=== PATIENT | female | born 1960 | race Caucasian/White ===

== ENCOUNTER 2016-08-19 16:35 | Emergency (ER) | payer OTHER ==
--- NOTE | 2016-08-19 18:06 | DIAGNOSTIC IMAGING REPORT ---
PROCEDURE: US VENOUS - LEFT EXT INDICATION: Left calf pain and swelling. Initial encounter. TECHNIQUE: Duplex sonography of the deep venous system in the left lower extremity was performed. Compression and augmentation techniques were used. COMPARISON: None. FINDINGS: Normal compression of the greater saphenous, common femoral, superficial femoral, popliteal, peroneal, and posterior tibial veins. Normal augmentation. There is no evidence of superficial or deep venous thrombosis. IMPRESSION: 1. Negative venous ultrasound of the left lower extremity.
--- NOTE | 2016-08-20 02:36 | ED NURSING NOTES ---
Clinical Report - Nurses [facility] [address] [place] [address] 08/19/2016 16:35 [id number] TRI[facility] Triage time 16:58. Acuity: LEVEL 4. Chief Complaint: LEFT LOWER EXTREMITY PAIN. 17:07 08/19/16. Alert. No acute distress. SEPSIS SCREEN: Sepsis Screen. Negative (no infection suspected/documented). JOHN COMA SCORE: John Coma Scale: 15- eyes open spontaneously (4); best verbal response- oriented x 4 (5); best motor response- obeys commands (6). --17:07 Caroline Franklin R.N. 16:58 08/19/16. BP: 132/77. HR: 74. RR: 18. O2 saturation: 94%. Temp: 98.3 F. Pain level now: 0/10. Additional comments: pt states pain is 0 when sitting. 10/10 when bearing weight on L leg or upon palpation. --17:07 Caroline Franklin R.N. Weight: 58.9 kg. Height/Length: 62 inches. BMI: 23.8. --17:06 Caroline Franklin R.N. Medications ASA Oral. CeleXA Oral. Hydrocodone-Acetaminophen Oral (Tablet 7.5-325 mg) 1 tablet, daily as needed. Levothyroxine Sodium Oral 75 mcg, daily. Vimpat Oral. --17:02 Caroline Franklin R.N. Allergies Keppra. (THROAT SWELLING) Phenytoin.(itching) Tetracycline. --17:02 Caroline Franklin R.N. History Accompanied by family. Primary physician referred the patient for evaluation (dr perez). This occurred yesterday. She has had trouble walking. Has had no swelling or redness. No fever, difficulty breathing, skin rash or weakness. Treatment UNIT EDUCATOR: (vicodin). PAST MEDICAL HX: Tetanus status: unknown. Immunizations: up-to-date. Denies current . SOCIAL HX: Heavy tobacco smoker- 1 pack per day. History of drug use: marijuana. No alcohol use. FALL RISK ASSESSMENT: Fall risk assessment completed. No fall risk identified. NUTRITIONAL RISK ASSESSMENT: The nutritional risk assessment revealed no deficiencies. FUNCTIONAL ASSESSMENT: Functional assessment: no impairments noted. LEARNING NEEDS ASSESSMENT: The learning needs assessment revealed no barriers. SKIN INTEGRITY ASSESSMENT: Skin integrity risk assessment completed. No skin integrity risk identified. --17:07 Caroline Franklin R.N. PROBLEMS: Chest Injury. Pruritus. Allergic Reaction. COPD - Chronic Obstructive Pulmonary Disease. Seizure. Herpes Zoster. Immunizations. Rheumatoid arteritis. Depression. Animal Bite. Tetanus Status. Hypothyroidism. --17:02 Caroline Franklin R.N. ADDITIONAL SURGERIES: . --17:02 Caroline Franklin R.N. Interventions ID band on patient. To treatment room. --17: Caroline Franklin R.N. PHYSICAL ASSESSMENT 17:09 08/19/16. GENERAL / NEURO / PSYCH: Alert. Appears in no acute distress. Appears in pain. (pt appears in pain when ambulating). CVS: Capillary refill is greater than 2 seconds. EXTREMITIES: Calf tenderness. Extremity pulses are within normal limits. Extremities exhibit normal ROM. No increased warmth on the extremities. Left leg: tenderness (calf). SKIN: Skin intact. Skin is warm and dry. Skin is markedly cool (distal to L calf). --17:09 Caroline Franklin R.N. NURSING PROGRESS NOTES Two patient identifiers checked. Call light placed in reach. Side rails up x 1. Bed placed in lowest position. Brakes of bed on. Patient ready for evaluation- chart flagged. ( Dr. Paniagua in room.). --17:10 Caroline Franklin R.N. 17:38 08/19/16. ( Ultrasound in room.). --17:38 Caroline Franklin R.N. DISPOSITION / DISCHARGE 18:28 08/19/16. ( room and lobby checked. pt eloped.). The patient left prior to discharge education being provided. --18:28 Caroline Franklin R.N. 18:27 08/19/16. BP: unable to obtain due to patient not present. HR: unable to obtain due to patient not present. RR: unable to obtain due to patient not present. O2 saturation: unable to obtain due to patient not present. Temp: unable to obtain due to patient not present. Pain level now unable to obtain due to patient not present. --18:28 Caroline Franklin R.N. Locked/Released at 08/19/2016 19:11 by Caroline Franklin R.N.
--- NOTE | 2016-08-20 02:36 | ED CLINICAL REPORT ---
Clinical Report - Physicians/Mid Levels [facility] [address] [place] [address] 08/19/2016 16:35 Patient: RAMAN TOVAR Time Seen: 17:07 Aug 19 2016. Arrived- By private vehicle. Historian- patient. CPT: ER phys charges level 3 (#[id number]). HISTORY OF PRESENT ILLNESS Chief Complaint: LOWER EXTREMITY PAIN and SWELLING. Severity is described as being moderate. The quality is noted to be sharp, aching and "pain". This started yesterday and is still present. Modifying factors- worsened by standing. Relieved by lying down. Symptoms located in the area of the left leg. The patient has not had redness. No swelling, bladder dysfunction, bowel dysfunction, sensory loss or motor loss. She has had difficulty walking. Patient notes the possibility of an injury. Mechanism of injury- (Stepped wrong and developed acute pain in the calf.). Similar symptoms previously: None. Recent medical care: Not recently seen/assessed. REVIEW OF SYSTEMS No cough, chest pain, difficulty breathing, fever or skin rash. No neck pain, back pain, sore throat, vomiting or diarrhea. No black stools or difficulty with urination. All systems otherwise negative, except as recorded above. PAST HISTORY ( Chest Injury. Pruritus. Allergic Reaction. COPD - Chronic Obstructive Pulmonary Disease. Seizure. Herpes Zoster. Immunizations. Rheumatoid arteritis. Depression. Animal Bite. Tetanus Status. Hypothyroidism. --17:02 Caroline Franklin R.N. ADDITIONAL SURGERIES: .). Medications: ASA Oral. CeleXA Oral. Hydrocodone-Acetaminophen Oral (Tablet 7.5-325 mg) 1 tablet, daily as needed. Levothyroxine Sodium Oral 75 mcg, daily. Vimpat Oral. Allergies: Keppra. (THROAT SWELLING) Phenytoin.(itching) Tetracycline. SOCIAL HISTORY Heavy tobacco smoker (cigarette)- 1-2 packs per day. History of occasional drug use: marijuana. No alcohol use. ADDITIONAL NOTES The nursing notes have been reviewed. PHYSICAL EXAM Vital Signs: 08/19/2016 16:58 BP: 132/77. HR: 74. RR: 18. O2 saturation: 94%. Temp: 98.3 F. Pain level now: 0/10. Appearance: Alert. Appears to be in pain. Patient in moderate distress. Eyes: Eyes normal inspection. ENT: Pharynx normal. Neck: Normal inspection. CVS: Normal heart rate and rhythm. Heart sounds normal. Respiratory: No respiratory distress. Breath sounds normal. Abdomen: Nontender. Back: No tenderness. Skin: Skin intact. Skin warm. Normal skin color. Extremities: Right leg: moderate tenderness and mild swelling located in the upper and mid leg. Limited weight bearing secondary to pain. Neurovascular intact distally. Calf tenderness. Neuro: Oriented X 3. No motor deficit. No sensory deficit. Reflexes normal. LABS, X-RAYS, AND EKG Lower Extremity Sonography: Negative study. PROGRESS AND PROCEDURES Course of Care: Discussed test results and diagnosis as well as follow up care. Pt left likely not understanding that she needed her discharge instructions. She did not elope without testing , results and instructions on treatment. Patient/family counseled. Disposition: Discharged. Condition: stable. CLINICAL IMPRESSION Muscle strain of the posterior aspect of the left lower leg. Accidentally left without instructions. INSTRUCTIONS Use crutches as needed. Elevate affected areas above chest level until better. Apply moist heat for 15-20 minutes three times a day for one weeks until better. No strenuous activity. You may walk and bear weight as tolerated. Warnings: Further evaluation is necessary. GENERAL WARNINGS: Return or contact your physician immediately if your condition worsens or changes unexpectedly, if not improving as expected, or if other problems arise. OTC Medications: Motrin (available over the counter): take according to label instructions. Follow-up: Follow up with your doctor in one week. Call for an appointment. Understanding of the discharge instructions verbalized by patient. (Electronically signed by Stephane Paniagua MD 08/21/2016 15:24)
--- NOTE | 2016-08-20 02:36 | ED NURSING NOTES ---
Clinical Report - Nurses [facility] [address] [place] [address] 08/19/2016 16:35 [id number] Triage time 16:58. Acuity: LEVEL 4. Chief Complaint: LEFT LOWER EXTREMITY PAIN. 17:07 08/19/16. Alert. No acute distress. SEPSIS SCREEN: Sepsis Screen. Negative (no infection suspected/documented). JOHN COMA SCORE: John Coma Scale: 15- eyes open spontaneously (4); best verbal response- oriented x 4 (5); best motor response- obeys commands (6). --17:07 Caroline Franklin R.N. 16:58 08/19/16. BP: 132/77. HR: 74. RR: 18. O2 saturation: 94%. Temp: 98.3 F. Pain level now: 0/10. Additional comments: pt states pain is 0 when sitting. 10/10 when bearing weight on L leg or upon palpation. --17:07 Caroline Franklin R.N. Weight: 58.9 kg. Height/Length: 62 inches. BMI: 23.8. --17:06 Caroline Franklin R.N. Medications ASA Oral. CeleXA Oral. Hydrocodone-Acetaminophen Oral (Tablet 7.5-325 mg) 1 tablet, daily as needed. Levothyroxine Sodium Oral 75 mcg, daily. Vimpat Oral. --17:02 Caroline Franklin R.N. Allergies Keppra. (THROAT SWELLING) Phenytoin.(itching) Tetracycline. --17:02 Caroline Franklin R.N. History Accompanied by family. Primary physician referred the patient for evaluation (dr perez). This occurred yesterday. She has had trouble walking. Has had no swelling or redness. No fever, difficulty breathing, skin rash or weakness. Treatment GRAPE CUTTER: (vicodin). PAST MEDICAL HX: Tetanus status: unknown. Immunizations: up-to-date. Denies current . SOCIAL HX: Heavy tobacco smoker- 1 pack per day. History of drug use: marijuana. No alcohol use. FALL RISK ASSESSMENT: Fall risk assessment completed. No fall risk identified. NUTRITIONAL RISK ASSESSMENT: The nutritional risk assessment revealed no deficiencies. FUNCTIONAL ASSESSMENT: Functional assessment: no impairments noted. LEARNING NEEDS ASSESSMENT: The learning needs assessment revealed no barriers. SKIN INTEGRITY ASSESSMENT: Skin integrity risk assessment completed. No skin integrity risk identified. --17:07 Caroline Franklin R.N. PROBLEMS: Chest Injury. Pruritus. Allergic Reaction. COPD - Chronic Obstructive Pulmonary Disease. Seizure. Herpes Zoster. Immunizations. Rheumatoid arteritis. Depression. Animal Bite. Tetanus Status. Hypothyroidism. --17:02 Caroline Franklin R.N. ADDITIONAL SURGERIES: . --17:02 Caroline Franklin R.N. Interventions ID band on patient. To treatment room. --17: Caroline Franklin R.N. PHYSICAL ASSESSMENT 17:09 08/19/16. GENERAL / NEURO / PSYCH: Alert. Appears in no acute distress. Appears in pain. (pt appears in pain when ambulating). CVS: Capillary refill is greater than 2 seconds. EXTREMITIES: Calf tenderness. Extremity pulses are within normal limits. Extremities exhibit normal ROM. No increased warmth on the extremities. Left leg: tenderness (calf). SKIN: Skin intact. Skin is warm and dry. Skin is markedly cool (distal to L calf). --17:09 Caroline Franklin R.N. NURSING PROGRESS NOTES Two patient identifiers checked. Call light placed in reach. Side rails up x 1. Bed placed in lowest position. Brakes of bed on. Patient ready for evaluation- chart flagged. ( Dr. Paniagua in room.). --17:10 Caroline Franklin R.N. 17:38 08/19/16. ( Ultrasound in room.). --17:38 Caroline Franklin R.N. DISPOSITION / DISCHARGE 18:28 08/19/16. ( room and lobby checked. pt eloped.). The patient left prior to discharge education being provided. --18:28 Caroline Franklin R.N. 18:27 08/19/16. BP: unable to obtain due to patient not present. HR: unable to obtain due to patient not present. RR: unable to obtain due to patient not present. O2 saturation: unable to obtain due to patient not present. Temp: unable to obtain due to patient not present. Pain level now unable to obtain due to patient not present. --18:28 Caroline Franklin R.N. Locked/Released at 08/19/2016 19:11 by Caroline Franklin R.N.
--- NOTE | 2016-08-20 02:36 | ED CLINICAL REPORT ---
Clinical Report - Physicians/Mid Levels [facility] [address] [place] [address] 08/19/2016 16:35 Patient: RAMAN TOVAR Time Seen: 17:07 Aug 19 2016. Arrived- By private vehicle. Historian- patient. CPT: ER phys charges level 3 (#[id number]). HISTORY OF PRESENT ILLNESS Chief Complaint: LOWER EXTREMITY PAIN and SWELLING. Severity is described as being moderate. The quality is noted to be sharp, aching and "pain". This started yesterday and is still present. Modifying factors- worsened by standing. Relieved by lying down. Symptoms located in the area of the left leg. The patient has not had redness. No swelling, bladder dysfunction, bowel dysfunction, sensory loss or motor loss. She has had difficulty walking. Patient notes the possibility of an injury. Mechanism of injury- (Stepped wrong and developed acute pain in the calf.). Similar symptoms previously: None. Recent medical care: Not recently seen/assessed. REVIEW OF SYSTEMS No cough, chest pain, difficulty breathing, fever or skin rash. No neck pain, back pain, sore throat, vomiting or diarrhea. No black stools or difficulty with urination. All systems otherwise negative, except as recorded above. PAST HISTORY ( Chest Injury. Pruritus. Allergic Reaction. COPD - Chronic Obstructive Pulmonary Disease. Seizure. Herpes Zoster. Immunizations. Rheumatoid arteritis. Depression. Animal Bite. Tetanus Status. Hypothyroidism. --17:02 Caroline Franklin R.N. ADDITIONAL SURGERIES: .). Medications: ASA Oral. CeleXA Oral. Hydrocodone-Acetaminophen Oral (Tablet 7.5-325 mg) 1 tablet, daily as needed. Levothyroxine Sodium Oral 75 mcg, daily. Vimpat Oral. Allergies: Keppra. (THROAT SWELLING) Phenytoin.(itching) Tetracycline. SOCIAL HISTORY Heavy tobacco smoker (cigarette)- 1-2 packs per day. History of occasional drug use: marijuana. No alcohol use. ADDITIONAL NOTES The nursing notes have been reviewed. PHYSICAL EXAM Vital Signs: 08/19/2016 16:58 BP: 132/77. HR: 74. RR: 18. O2 saturation: 94%. Temp: 98.3 F. Pain level now: 0/10. Appearance: Alert. Appears to be in pain. Patient in moderate distress. Eyes: Eyes normal inspection. ENT: Pharynx normal. Neck: Normal inspection. CVS: Normal heart rate and rhythm. Heart sounds normal. Respiratory: No respiratory distress. Breath sounds normal. Abdomen: Nontender. Back: No tenderness. Skin: Skin intact. Skin warm. Normal skin color. Extremities: Right leg: moderate tenderness and mild swelling located in the upper and mid leg. Limited weight bearing secondary to pain. Neurovascular intact distally. Calf tenderness. Neuro: Oriented X 3. No motor deficit. No sensory deficit. Reflexes normal. LABS, X-RAYS, AND EKG Lower Extremity Sonography: Negative study. PROGRESS AND PROCEDURES Course of Care: Discussed test results and diagnosis as well as follow up care. Pt left likely not understanding that she needed her discharge instructions. She did not elope without testing , results and instructions on treatment. Patient/family counseled. Disposition: Discharged. Condition: stable. CLINICAL IMPRESSION Muscle strain of the posterior aspect of the left lower leg. Accidentally left without instructions. INSTRUCTIONS Use crutches as needed. Elevate affected areas above chest level until better. Apply moist heat for 15-20 minutes three times a day for one weeks until better. No strenuous activity. You may walk and bear weight as tolerated. Warnings: Further evaluation is necessary. GENERAL WARNINGS: Return or contact your physician immediately if your condition worsens or changes unexpectedly, if not improving as expected, or if other problems arise. OTC Medications: Motrin (available over the counter): take according to label instructions. Follow-up: Follow up with your doctor in one week. Call for an appointment. Understanding of the discharge instructions verbalized by patient. (Electronically signed by Stephane Paniagua MD 08/21/2016 15:24)
--- NOTE | 2016-08-20 02:36 | ED ORDER SUMMARY ---
..... Patient: RAMAN TOVAR OrderSheet [facility] VisitID: [id number] [address] [place] [address] 56y, F Registration Date/Time: 08/19/2016 ORDER SHEET Weight: 58.9 kg Allergies: Keppra, Phenytoin, Tetracycline GENERAL ORDERS: US Venous Left Urgent (17:12 08/19/2016 Anurag ELENA) (Ack 17:27 Cora) (19:11 Vandana Reyez) MEDICATION ORDERS: IV FLUIDS: ORDER SHEET NOTES: [Electronically signed by Caroline Franklin R.N. (19:11 08/19/2016)] [Electronically signed by Stephane Paniagua MD (15:24 08/21/2016)] [Electronically locked/signed by Caroline Franklin R.N. (19:11 08/19/2016)]
--- NOTE | 2016-08-20 02:36 | ED ORDER SUMMARY ---
..... Patient: RAMAN TOVAR OrderSheet [facility] VisitID: [id number] [address] [place] [address] 56y, F Registration Date/Time: 08/19/2016 ORDER SHEET Weight: 58.9 kg Allergies: Keppra, Phenytoin, Tetracycline GENERAL ORDERS: US Venous Left Urgent (17:12 08/19/2016 Anurag ELENA) (Ack 17:27 Cora) (19:11 Vandana Reyez) MEDICATION ORDERS: IV FLUIDS: ORDER SHEET NOTES: [Electronically signed by Caroline Franklin R.N. (19:11 08/19/2016)] [Electronically signed by Stephane Paniagua MD (15:24 08/21/2016)] [Electronically locked/signed by Caroline Franklin R.N. (19:11 08/19/2016)]
--- NOTE | 2016-08-21 15:24 | ED MAR SUMMARY ---
..... Medication Administration Record [facility] [address], [place] [id number] Patient: RAMAN TOVAR Visit ID: [id number] 56y, F Weight: 58.9 kg Height/Length: 62 in BMI: 23.8 ALLERGIES: Keppra, Phenytoin, Tetracycline
--- NOTE | 2016-08-21 15:24 | ED MED RECONCILIATION SUMMARY ---
Patient: RAMAN TOVAR Medication Reconciliation Report [facility] VisitID: [id number] [address] [place] [address] 56y, F Registration Date/Time: 08/19/2016 Weight: 58.9 kg Height/Length: 62 in. BMI: 23.8 ALLERGIES: Keppra, Phenytoin, Tetracycline The patient's Home Medications are listed below: THE FOLLOWING MEDICATIONS NEED TO BE RECONCILED: ASA Oral CeleXA Oral Hydrocodone-Acetaminophen Oral (7.5-325 mg) 1 tablet, daily Levothyroxine Sodium Oral 75 mcg, daily Vimpat Oral The source(s) of the original Home Medication information: Not obtained. The following Medications were given to the patient in the Emergency Department: None. The following Medications were prescribed to the patient: Motrin (available over the counter): take according to label instructions. -- Stephane Paniagua MD
--- NOTE | 2016-08-21 15:24 | ED MED RECONCILIATION SUMMARY ---
Patient: RAMAN TOVAR Medication Reconciliation Report [facility] VisitID: [id number] [address] [place] [address] 56y, F Registration Date/Time: 08/19/2016 Weight: 58.9 kg Height/Length: 62 in. BMI: 23.8 ALLERGIES: Keppra, Phenytoin, Tetracycline The patient's Home Medications are listed below: THE FOLLOWING MEDICATIONS NEED TO BE RECONCILED: ASA Oral CeleXA Oral Hydrocodone-Acetaminophen Oral (7.5-325 mg) 1 tablet, daily Levothyroxine Sodium Oral 75 mcg, daily Vimpat Oral The source(s) of the original Home Medication information: Not obtained. The following Medications were given to the patient in the Emergency Department: None. The following Medications were prescribed to the patient: Motrin (available over the counter): take according to label instructions. -- Stephane Paniagua MD
--- NOTE | 2016-08-21 15:24 | ED DISCHARGE INSTRUCTIONS ---
Patient: RAMAN TOVAR General Instructions [facility] VisitID: [id number] [place] [address] 56y, F Registration Date/Time: 08/19/2016 Muscle strain of the posterior aspect of the left lower leg. Accidentally left without instructions. INSTRUCTIONS Use crutches as needed. Elevate affected areas above chest level until better. Apply moist heat for 15-20 minutes three times a day for one weeks until better. No strenuous activity. You may walk and bear weight as tolerated. Warnings: Further evaluation is necessary. GENERAL WARNINGS: Return or contact your physician immediately if your condition worsens or changes unexpectedly, if not improving as expected, or if other problems arise. OTC Medications: Motrin (available over the counter): take according to label instructions. Follow-up: Follow up with your doctor in one week. Call for an appointment. Understanding of the discharge instructions verbalized by patient. ADDITIONAL INFORMATION Muscle Strain,Extremity A MUSCLE STRAIN is a stretching and tearing of muscle fibers. This causes pain, especially with motion of that muscle. There may also be some swelling and bruising. Home Care: 1) Keep the injured area raised to reduce pain and swelling. This is especially important during the first 48 hours. 2) Make an ice pack (ice cubes in a plastic bag, wrapped in a towel) and apply for 20 minutes every 1-2 hours the first day. You should continue with ice packs 3-4 times a day for the second and third days. Unless otherwise instructed, on the fourth day you may begin hot soaks or hot packs (small towel soaked in hot water) 3-4 times a day while you gently exercise the involved area. 3) You may use acetaminophen (Tylenol) or ibuprofen (Motrin, Advil) to control pain, unless another medicine was prescribed. [ NOTE : If you have chronic liver or kidney disease or ever had a stomach ulcer or GI bleeding, talk with your doctor before using these medicines.] 4) For LEG STRAINS: If CRUTCHES have been recommended, do not bear full weight on the injured leg until you can do so without pain. You may return to sports when you are able to hop and run on the injured leg without pain. Follow Up with your doctor or this facility if you are not improving within the next five days. Get Prompt Medical Attention if any of the following occur: -- Fingers or toes become swollen, cold, blue, numb or tingly -- Pain or swelling increases Crutch Walking Crutch Adjustment Make sure the crutches you use are adjusted to fit you. When you stand, there should be room to fit 2-3 fingers between the top of the crutch and your armpit. Your elbow should be slightly bent when holding the hand dairy manufacturing technologist. Crutch Walking: Place the crutches forward 12" in front of and 6" to the side of your feet. Lean your weight forward as you push down on the handgrips. Your weight should be on your hands and yourstrong leg, not your armpits . Let your body swing through, landing on the strong leg. Advance the crutches forward again. The crutch and the injured leg should move together. Going Up Steps: ("Up with the good") With both crutches on the same step as your feet, push down on the handgrips. Balancing with very light pressure on the weak leg, let your hands support your weight as you raise your strong leg onto the next higher step. Transfer all your weight to your strong leg (still bent) as you move the crutches up to the next step alongside the strong leg. With your weight evenly balanced on the two crutches and your strong leg, straighten your strong knee as you raise the weak leg up to the next step. Going Down Steps: ("Down with the bad") With both crutches on the same step as your feet, push down on the handgrips. With your weight evenly balanced on the two crutches and your strong leg, bend your strong knee as you lower the weak leg down to the next step. Let your strong leg support you (still bent) as you move the crutches down alongside the weak leg. Transfer your weight to your hands, balancing with very light pressure on the weak leg as you lower your strong leg alongside your weak leg. You have been given the following additional information: Muscle Strain, Extremity Crutch Walking No strenuous activity. You may walk and bear weight as tolerated. (Electronically signed by Stephane Paniagua MD 08/21/2016 15:24)
--- NOTE | 2016-08-21 15:24 | ED MAR SUMMARY ---
..... Medication Administration Record [facility] [address] [place], [place] [id number] Patient: RAMAN TOVAR Visit ID: [id number] 56y, F Weight: 58.9 kg Height/Length: 62 in BMI: 23.8 ALLERGIES: Keppra, Phenytoin, Tetracycline
== END 2016-08-19 18:26 | disposition home or self-care (01) ==
LOC: ED SRH 16:35
DX: S86.112A Strain of other muscle(s) and tendon(s) of posterior muscle group at lower leg level, left leg, initial encounter (principal); X50.1XXA Overexertion from prolonged static or awkward postures, initial encounter; Y92.9 Unspecified place or not applicable; Y93.9 Activity, unspecified; Y99.9 Unspecified external cause status; J44.9 Chronic obstructive pulmonary disease, unspecified; E07.9 Disorder of thyroid, unspecified; Z79.891 Long term (current) use of opiate analgesic; Z79.82 Long term (current) use of aspirin; Z79.899 Other long term (current) drug therapy